=== PATIENT | male | born 1975 | race African-American/Black ===

== ENCOUNTER 2016-10-12 11:26 | Emergency (ER) | payer OTHER ==
--- NOTE | 2016-10-12 11:55 | PROVIDER DOCUMENTATION ---
HPI-Rash/Wound/ReCheck - General Chief Complaint: Male Stated Complaint: MALE Time Seen by Provider: 10/12/16 11:42 Source: patient Allergies/Adverse Reactions: Allergies Allergy/AdvReac Type Severity Reaction Status Date / Time No Known Allergies Allergy Verified 10/12/16 12:16 Home Medications: Home Medication List Medication Instructions Recorded Confirmed Last Taken Type Benztropine [Cogentin] 1 mg PO BID 30 Days 08/19/16 10/12/16 10/12/16 08:00 Rx Risperidone [Risperdal] 2 mg PO QAM 30 Days 08/19/16 10/12/16 10/12/16 08:00 Rx Risperidone [Risperdal] 3 mg PO QHS 30 Days 08/19/16 10/12/16 10/11/16 20:00 Rx Tramadol [Ultram] 100 mg PO BID 30 Days 08/19/16 10/12/16 10/12/16 08:00 Rx Acyclovir [Zovirax] 800 mg PO BID #10 tablet 10/12/16 Unknown Rx - History of Present Illness-Dermatology Nature of Presenting Problem: 41 y/o BM presents to ED with report of herpes outbreak x 2 days. Pt states that he has a hx of herpes and states that he ran out of his Acyclovir. Denies any urinary sxs, penile d/c, fever/chills. States that he normally only takes medications for outbreak. Denies any other sxs. Pt also states that he fell on his R hip and has pain to it; states hip replacement previously. Review of Systems - Adult - REVIEW OF SYSTEMS - ADULT Constitutional: reports: no symptoms reported. denies: chills, fever Eyes: reports: no symptoms reported. denies: blurred vision, double vision Ears, Nose, Mouth & Throat: reports: no symptoms reported. denies: ear pain, nose pain Cardiovascular: reports: no symptoms reported. denies: chest pain, palpitations Respiratory: reports: no symptoms reported. denies: dyspnea on exertion, shortness of breath Gastrointestinal: reports: no symptoms reported. denies: nausea, vomiting Genitourinary: reports: see HPI, other. denies: dysuria, frequency Musculoskeletal: reports: no symptoms reported. denies: joint pain, joint swelling Integumentary: reports: see HPI, rash. denies: nail changes Neurological: reports: no symptoms reported. denies: numbness, paresthesia Psychiatric: reports: no symptoms reported Endocrine: reports: no symptoms reported. denies: cold intolerance, heat intolerance Hematologic/Lymphatic: reports: no symptoms reported. denies: easy bruising, prolonged bleeding Allergic/Immunologic: reports: no symptoms reported All Other Systems: Reviewed and Negative Past History - Adult - PAST MEDICAL HISTORY-ADULT Review of Records: reports: Nursing Assessment Review, Medications Reviewed Cardiovascular: reports: hyperlipidemia Gastrointestinal: reports: denies history Musculoskeletal: reports: chronic pain Psychiatric: reports: anxiety, bipolar, psychiatric problems, suicide attempt, schizophrenia - PRIOR SURGERIES/PROCEDURES Surgical/Procedure History: reports: orthopedic (extremity), joint replacement ( R hip) - PRIOR HOSPITALIZATIONS Prior Hospitalizations: reports: psychiatric or rehab - IMMUNIZATION STATUS Childhood Immunizations: See Nurse Assessment Flu Vaccine: See Nurse Assessment - FAMILY HISTORY Family History: reviewed, not pertinent - SOCIAL HISTORY Smoking: cigarettes, less than 1 pack/day Provider spent 3-5 mins advising pt. on dangers of tobacco.: Discussed manners to quit use, and f/u contacts for add'l counseling. Physical Exam-General - PHYSICAL EXAM-ADULT Initial Vital Signs Reviewed: Yes - CONSTITUTIONAL General Appearance: alert, mild distress - EYES Eyes: pink conjunctivae - HEAD, EARS, NOSE, MOUTH & THROAT HENMT: normocephalic/atraumatic - NECK Neck: normal inspection - RESPIRATORY Respiratory: no respiratory distress - GENITOURINARY Male Genitalia: normal genitalia, herpes-like lesion (mons pubis; crusting phase with redness surrounding approx 7 lesions), inguinal lymphadenopathy. negative: scrotal swelling, urethral discharge, inguinal tenderness, testicular tenderness - MUSCULOSKELETAL Back Exam: normal inspection Extremity: normal range of motion, normal gait. negative: abnormal NV exam, pulse deficit - SKIN Integumentary: normal color, normal turgor, warm/dry - NEUROLOGIC Neurologic: negative: aphasia - PSYCHIATRIC Psych/Mental Status: normal mood/affect, normal thought content, normal thought process, oriented x 3 Progress - XRAY 1 XRAY: Right XRAY Study: Pelvis, Hip Impression: See EMR Report (No acute disease, per Dr. Mosqueda) Departure - Departure Time of Disposition Order: 12:37 DIAGNOSIS: Herpes genitalis in men Hip pain, chronic Qualifiers: Laterality: right Qualified Code(s): M25.551 - Pain in right hip; G89.29 - Other chronic pain Disposition: HOME 01 Certified Medical Emergency: Emergent Condition: Stable Additional Instructions: Take medications as directed. Ice or heat to R hip as needed. Follow up with PCP if symptoms persist. ED Follow Up Instructions: You have been treated by a care provider in the Emergency Department. These instructions are being provided to you so you can have an understanding of how to care for yourself upon discharge. Upon discharge from the Emergency Department, you are responsible for making arrangements for follow-up care by a physician of your choice. Take all prescribed medications as directed. Return to the Emergency Department immediately for any new or worsening symptoms. You may call the Physician Referral phone number at [phone] to obtain a list of Physicians who are taking new patients. Prescriptions: Acyclovir [Zovirax] 800 mg PO BID #10 tablet Referrals: None,PCP [Primary Care Provider] - [facility] [NON-STAFF] - Attestation - Physician/ MAGGIE Attestation Patient care was provided by Advanced Practice Provider:: Yes Advanced Practice Provider:: Yamilex Cohen Advanced Practice Provider documentation review:: The Mid-level provider documentation, treatment plan and medical decision making was reviewed by the physician who agrees with all treatment and medical decision making by the MLP.
[2016-10-12 13:04] VITALS: BP 104/67
--- NOTE | 2016-10-12 13:28 | Diag Imaging Result Document ---
PROCEDURE NAME: XRAY PELVIS W/HIP 2-3VW RT - 10/12/2016 PELVIS AND 2 VIEWS OF THE RIGHT HIP: COMPARISON: 06/10/2016. FINDINGS: There is a stable right total hip prosthesis. Alignment is anatomic. No hardware fracture or loosening. 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 IMPRESSION: No complication or change from prior.
== END 2016-10-12 13:03 | disposition home or self-care (01) ==
LOC: ED 11:26
DX: A60.00 Herpesviral infection of urogenital system, unspecified (principal); M25.551 Pain in right hip; R59.0 Localized enlarged lymph nodes; G89.29 Other chronic pain; E78.5 Hyperlipidemia, unspecified; F41.9 Anxiety disorder, unspecified; F31.9 Bipolar disorder, unspecified; F20.9 Schizophrenia, unspecified; Z79.899 Other long term (current) drug therapy; F17.210 Nicotine dependence, cigarettes, uncomplicated; Z71.6 Tobacco abuse counseling